=== PATIENT | male | born 1960 | race Caucasian/White ===

== ENCOUNTER 2018-11-29 13:00 | Emergency (ER) | payer OTHER ==
[~2018-11-29] VITALS: Ht 175.3 cm; Wt 93.9 kg
[~2018-11-29 13:00] MED LIST: AMLO5; CLOP75 PO; COMBIVENT RESPIM4 GM; CYCL10 PO; HYDACE10B; HYDCHL12.5; IRBHYD150 PO; LIVALO4 MG; MONT10T; NITR.4SL SL; Norco 5-325 Ta1 EACH PO; Percocet 5-3251 EACH PO; Prednisone20 MG PO; Protonix40 MG PO; Ranexa1000 MG PO; Ventolin Soln3 ML; Vibramycin100 MG PO
[2018-11-29 13:40] LABS: Calcium, Ionized (POC) 1.14 mmol/L (1.10-1.46); Creatinine (POC) 1.6 mg/dL (0.8-1.3); Hemoglobin (POC) 12.9 g/dL (13.5-17.5); Potassium (POC) 3.8 mmol/L (3.5-5.5)
== END 2018-11-29 16:00 | disposition home or self-care (01) ==
LOC: ER 13:00
PROVIDERS: Physician Assistant
DX: J36 Peritonsillar abscess (principal); Z88.6 Allergy status to analgesic agent; Z88.0 Allergy status to penicillin; Z88.2 Allergy status to sulfonamides; Z88.1 Allergy status to other antibiotic agents; Z79.899 Other long term (current) drug therapy; Z79.891 Long term (current) use of opiate analgesic; J44.9 Chronic obstructive pulmonary disease, unspecified; Z87.891 Personal history of nicotine dependence
CPT/HCPCS: 70491; 80047; 85014; 96361-59; 96365-59; 99283-25; J7030; Q9967

== ENCOUNTER → 2019-03-25 | Outpatient (CLI) | payer OTHER ==
[~2019-03-25] MED LIST changes: +ALBU2.5V5 INH; +C Complex1000 MG PO; +COMBIVENT RESPIM4 GM INH; +Crestor5 MG PO; +GLUCOSAMINE HC500 MG PO; +IRBESARTAN-HCT1 EACH PO; +KRILL OIL500 MG PO; +MITIGARE0.6 MG PO; +MONT10T PO; +Nitroglycerin0.4 MG SL; +QVAR REDIHALE10.6 G1 INH; +UTIBRON NEOHALER INH
[2019-03-25 11:00] LABS: Body Fluid Crystals NEG (NEGATIVE)
== END | disposition home or self-care (01) ==
LOC: LAB 10:40 → LAB SHORT 10:40
DX: M70.22 Olecranon bursitis, left elbow (principal); M25.50 Pain in unspecified joint
CPT/HCPCS: 87070; 87205; 89060

== ENCOUNTER 2019-05-10 09:44 | Day surgery (SDC) | payer OTHER ==
[~2019-05-10] VITALS: Ht 175.3 cm; Wt 92.8 kg
[~2019-05-10 09:44] MED LIST changes: -Crestor5 MG PO
[2019-05-10] MEDS ORDERED: Crestor5 MG PO (10:40)
== END 2019-05-10 13:00 | disposition home or self-care (01) ==
LOC: ORSCSDS 09:44
PROVIDERS: Orthopaedic Surgery
PROC: 0SBC4ZZ Excision of Right Knee Joint, Percutaneous Endoscopic Approach (ICD-10-PCS; principal; 2019-05-10 11:30)
DX: S83.241A Other tear of medial meniscus, current injury, right knee, initial encounter (principal); S83.281A Other tear of lateral meniscus, current injury, right knee, initial encounter; I10 Essential (primary) hypertension; I25.10 Atherosclerotic heart disease of native coronary artery without angina pectoris; J44.9 Chronic obstructive pulmonary disease, unspecified; Z79.899 Other long term (current) drug therapy
CPT/HCPCS: A9270-GY; J0171; J1100; J1885; J2250; J2405; J2704; J3010; J3370

== ENCOUNTER 2020-05-05 06:11 | Observation (INO) | payer OTHER ==
[~2020-05-05] VITALS: Ht 175.3 cm; Wt 98.0 kg
[~2020-05-05 06:11] MED LIST changes: -ALBU2.5V5 INH; +ALBU2.5V5 NEB; +COMBIVENT RESPIM4 G1 INH; -COMBIVENT RESPIM4 GM INH; +Crestor5 MG PO; +FLONASE ALLERG9.9 M2; +IRBESARTAN-HCT1 EAC3 PO; -IRBESARTAN-HCT1 EACH PO; +NITROGLYCERIN 0.1 MG/HR TD; -Nitroglycerin0.4 MG SL; +Nitrostat0.3 MG SL; +TRAM50 PO
--- NOTE | 2020-05-05 11:30 | NUR ---
ambulated to bathroom. Tolerated well.
--- NOTE | 2020-05-05 12:39 | NUR ---
REPORT GIVEN TO Sujata CHEN RN
--- NOTE | 2020-05-05 13:15 | NUR ---
TRANSFERRED TO PCU 15 VIA BED. DENIES CHEST PAIN. TR BAND INTACT 11 CC AIR. NO BLEEDING AT SITE.
--- NOTE | 2020-05-05 13:30 | NUR ---
PT TO ROOM FROM H/C. PT A/O. DENIES PAIN. H/R REG, NO MURMER NOTED. LUNGS CLEAR, RESP EASY, UNLABORED. TR BAND INTACT. 11 CC IN BAND PER REPORT FROM COMMUNICATIONS CONTROLLER. OBSERVED. NO BLEEDING NOTED. NO HEMATOMA. SITE CLEAN DRY. PT STATES NO NUMBNESS TINGLING IN FINGERS. O2 > 92% ON R.A. AT EXTREMETIES.
--- NOTE | 2020-05-05 15:47 | NUR ---
REVIEW OF TR BAND DURING DEFLATION. PT DENIES PAIN, NUMNESS TINGLING. CAP REFILL <2 SEC. FINGERS PINK. O2 SATS >92% NO BLEEDING, HEMATOMA, OR BRUISING NOTED.
--- NOTE | 2020-05-05 16:17 | NUR ---
PT C/O CHEST PAIN 4/10 MINLINE. BP VSS . ONE NITRO S/L ADMIN. PT STATES IS EASING UP.
[2020-05-05] MEDS ORDERED: WIXELA 250-501 EAC1 INH (17:01)
[2020-05-05] MEDS ORDERED: ANORO ELLIPTA1 EAC1 INH (17:04)
--- NOTE | 2020-05-05 18:04 | NUR ---
PT PLEASANT TODAY SINCE ADMIT. TR BAND FULLY DEFLATED AT 1645, REMOVED AT 1800. NO BLEEDING, NO HEMATOMA, NO BRUISING NOTED. ARMBAND IN PLACE. PT ATE DINNER WITHOUT ISSUES. BED IN LOW POSITION, CALL LITE IN REACH, CALLS APPROP
[2020-05-06 04:22] LABS: BASOPHILS ABSOLUTE AUTO 0.03 K/mm3 (0.00-0.23); BASOPHILS PERCENT AUTO 0 % (0-2); EOSINOPHILS PERCENT AUTO 4 % (0-6); Hematocrit 35.3 % (37.0-53.0); Hemoglobin 12.2 g/dL (13.5-17.5); IMMATURE GRAN ABSOLUTE AUTO 0.04 K/mm3 (0.00-0.10); IMMATURE GRAN PERCENT AUTO 1 % (0-1); LYMPHOCYTES ABSOLUTE AUTO 2.49 K/mm3 (0.84-5.20); LYMPHOCYTES PERCENT AUTO 36 % (21-46); MONOCYTES PERCENT AUTO 10 % (4-13); Mean Corpuscular HGB 32.8 pg (26.0-34.0); Mean Corpuscular HGB Conc 34.6 g/dL (31.5-36.5); Mean Corpuscular Volume 95 fL (80-100); Mean Platelet Volume 8.8 fL (9.1-12.4); NEUTROPHILS ABSOLUTE AUTO 3.28 K/mm3 (1.96-9.15); NEUTROPHILS PERCENT AUTO 48 % (41-73); Platelet Count 236 K/mm3 (150-400); RDW Standard Deviation 41.2 fL (35.1-46.3); Red Blood Cell Count 3.72 M/mm3 (4.30-5.90); White Blood Cell Count 6.84 K/mm3 (4.00-11.30)
[2020-05-06 04:45] LABS: Anion Gap 6 mmol/L (6-16); Blood Urea Nitrogen 14 mg/dL (8-24); CO2, Blood 26 mmol/L (21-32); Calcium, Blood 8.7 mg/dL (8.5-10.1); Chloride, Blood 107 mmol/L (98-108); Creatinine, Blood 1.17 mg/dL (0.60-1.20); Glomerular Filtration Rate >60 (60-); Glucose, Blood 102 mg/dL (70-99); Potassium, Blood 3.9 mmol/L (3.5-5.5); Sodium, Blood 139 mmol/L (136-145)
--- NOTE | 2020-05-06 05:29 | NUR ---
PT RESTED COMFORTABLY THROUGHOUT NIGHT AO TELE NSR VOIDING INDEPENDENTLY NO BM R RADIAL SITE CDI NO C/O PAIN CALL LIGHT WITHIN REACH. BED IN LOWEST IN POSITION. WILL CONTINUE TO MONITOR.
--- NOTE | 2020-05-06 07:34 | NUR ---
ASSUMED CARE: PT RESTING QUIETLY AT THIS TIME. NSR WITH PACS ON TELE. NO ACUTE NEEDS OR CONCERNS.
[2020-05-06] MEDS ORDERED: TICA90TA PO (12:38)
[2020-05-06] MEDS ORDERED: HYDCHL25 PO (12:38)
--- NOTE | 2020-05-06 13:45 | NUR ---
PT DISCHARGED. IV REMOVED WNL. RADIAL SITE WITHOUT SIGN OF HEMATOMA OR BLEEDING. EDUCATED TO HOLD PRESSURE IF BLEEDING OR SWELLING IS NOTED. EDUCATED TO FOLLOW UP WITH CARDIOLOGY IN 1 WEEK. PT STATES HE ALREADY HAS APPOINTMENT. EDUCATED ABOUT PRECAUTIONS WITH BRILINTA AND INFORMED TO NOT TAKE EXTRA HYDROCHLOROTHIAZIDE PER DR SALDAÑA. ESCORTED OUT VIA WHEEL CHAIR BY HOSPITAL STAFF. NO FURTHER NEEDS OR CONCERNS AT THIS TIME.
== END 2020-05-06 13:40 | disposition home or self-care (01) ==
LOC: MHTC 06:11 → PCU 12:29 → MHTC 13:31 → PCU 05-06 13:40
PROVIDERS: Internal Medicine Interventional Cardiology; ADMIT Internal Medicine Interventional Cardiology
DX: I25.110 Atherosclerotic heart disease of native coronary artery with unstable angina pectoris (principal); I10 Essential (primary) hypertension; E78.5 Hyperlipidemia, unspecified; J44.9 Chronic obstructive pulmonary disease, unspecified; Z88.0 Allergy status to penicillin; Z88.2 Allergy status to sulfonamides; Z88.6 Allergy status to analgesic agent; Z88.8 Allergy status to other drugs, medicaments and biological substances; Z79.01 Long term (current) use of anticoagulants; Z79.899 Other long term (current) drug therapy; Z87.891 Personal history of nicotine dependence
CPT/HCPCS: 76937; 80048; 85025; 85347; 93454; 94640; 94760; 96372; 99152; 99153; A9270-GY; C1725; C1769; C1874; C1887; C1894; C9600; C9601; G0378; J1644; J2250; J3010; J7030; J7050; Q9967

== ENCOUNTER 2020-09-29 10:43 | Observation (INO) | payer OTHER ==
[~2020-09-29] VITALS: Ht 175.3 cm; Wt 93.6 kg
[~2020-09-29 10:43] MED LIST changes: +ANORO ELLIPTA1 EAC1 INH; +Aspir 8181 MG PO; +GENICIN500 M1 PO; -GLUCOSAMINE HC500 MG PO; +HYDCHL25 PO; +HYOSCYAMINE0.375 M3 PO; +IRBE75 PO; +NITROGLYCERIN PATCH TD; +PEPCID40 MG PO; +RANEXA1000 M1 PO; +SPIRIVA RESPIMAT4 G2 INH; +TICA90TA PO; +WIXELA 250-501 EAC1 INH
[2020-09-29 11:30] LABS: BASOPHILS ABSOLUTE AUTO 0.03 K/mm3 (0.00-0.23); BASOPHILS PERCENT AUTO 1 % (0-2); EOSINOPHILS ABSOLUTE AUTO 0.15 K/mm3 (0.00-0.68); EOSINOPHILS PERCENT AUTO 3 % (0-6); Hematocrit 40.1 % (37.0-53.0); Hemoglobin 13.7 g/dL (13.5-17.5); IMMATURE GRAN ABSOLUTE AUTO 0.03 K/mm3 (0.00-0.10); IMMATURE GRAN PERCENT AUTO 1 % (0-1); LYMPHOCYTES ABSOLUTE AUTO 1.44 K/mm3 (0.84-5.20); LYMPHOCYTES PERCENT AUTO 27 % (21-46); MONOCYTES ABSOLUTE AUTO 0.46 K/mm3 (0.16-1.47); MONOCYTES PERCENT AUTO 9 % (4-13); Mean Corpuscular HGB 33.3 pg (26.0-34.0); Mean Corpuscular HGB Conc 34.2 g/dL (31.5-36.5); Mean Corpuscular Volume 97 fL (80-100); Mean Platelet Volume 9.2 fL (9.1-12.4); NEUTROPHILS ABSOLUTE AUTO 3.23 K/mm3 (1.96-9.15); NEUTROPHILS PERCENT AUTO 60 % (41-73); Platelet Count 217 K/mm3 (150-400); RDW Coefficient Variation 12.2 % (11.7-14.2); RDW Standard Deviation 44.2 fL (35.1-46.3); Red Blood Cell Count 4.12 M/mm3 (4.30-5.90); White Blood Cell Count 5.34 K/mm3 (4.00-11.30)
[2020-09-29 11:46] LABS: Alanine Aminotransfer (ALT/SGP 31 U/L (12-78); Albumin, Blood 3.7 g/dL (3.4-5.0); Albumin/Globulin Ratio 1.2 (0.8-1.8); Alk Phos 80 U/L (50-136); Anion Gap 6 mmol/L (6-16); Aspartate Aminotrans (AST/SGOT 15 U/L (12-37); Bilirubin, Total 0.9 mg/dL (0.1-1.0); Blood Urea Nitrogen 17 mg/dL (8-24); CO2, Blood 23 mmol/L (21-32); Calcium, Blood 8.9 mg/dL (8.5-10.1); Chloride, Blood 110 mmol/L (98-108); Creatinine, Blood 0.94 mg/dL (0.60-1.20); Globulin, Blood 3.2 g/dL (2.2-4.0); Glomerular Filtration Rate >60 (60-); Glucose, Blood 118 mg/dL (70-99); Potassium, Blood 3.9 mmol/L (3.5-5.5); Sodium, Blood 139 mmol/L (136-145); Total Protein, Blood 6.9 g/dL (6.4-8.2); Troponin I <0.015 ng/mL (0.000-0.040)
[2020-09-29] MEDS ORDERED: PANTOPRAZOLE SO40 M2 PO (13:36)
--- NOTE | 2020-09-29 19:12 | NUR ---
SHIFT SUMMARY CHASIDY ARRIVED FROM ER AROUND 1420 THIS AFTERNOON. PRESENT MOST OF AFTERNOON. PT AT 4/10 PAIN AND RECEIVED IV FENTANYL AND A OT DOSE OF PO XANAX WHICH HELPED. INDEP IN ROOM. MIVF RUNNING. DR DISLA AT BEDSIDE AT SHIFT CHANGE. TELE SHOWING SINUS PAUL. TOOK MEDS PRESCRIBED. CALL LIGHT IN REACH, REPORT GIVEN TO NIGHT NURSE
[2020-09-30 01:03] LABS: BASOPHILS ABSOLUTE AUTO 0.03 K/mm3 (0.00-0.23); BASOPHILS PERCENT AUTO 1 % (0-2); EOSINOPHILS ABSOLUTE AUTO 0.18 K/mm3 (0.00-0.68); EOSINOPHILS PERCENT AUTO 3 % (0-6); Hematocrit 36.2 % (37.0-53.0); Hemoglobin 12.5 g/dL (13.5-17.5); IMMATURE GRAN ABSOLUTE AUTO 0.02 K/mm3 (0.00-0.10); IMMATURE GRAN PERCENT AUTO 0 % (0-1); LYMPHOCYTES ABSOLUTE AUTO 2.21 K/mm3 (0.84-5.20); LYMPHOCYTES PERCENT AUTO 40 % (21-46); MONOCYTES ABSOLUTE AUTO 0.57 K/mm3 (0.16-1.47); MONOCYTES PERCENT AUTO 10 % (4-13); Mean Corpuscular HGB 33.6 pg (26.0-34.0); Mean Corpuscular HGB Conc 34.5 g/dL (31.5-36.5); Mean Corpuscular Volume 97 fL (80-100); Mean Platelet Volume 9.2 fL (9.1-12.4); NEUTROPHILS ABSOLUTE AUTO 2.59 K/mm3 (1.96-9.15); NEUTROPHILS PERCENT AUTO 46 % (41-73); Platelet Count 207 K/mm3 (150-400); RDW Coefficient Variation 12.4 % (11.7-14.2); RDW Standard Deviation 44.5 fL (35.1-46.3); Red Blood Cell Count 3.72 M/mm3 (4.30-5.90)
[2020-09-30 01:23] LABS: Anion Gap 8 mmol/L (6-16); Blood Urea Nitrogen 16 mg/dL (8-24); Bun/Creatinine Ratio 15.8 (12.0-20.0); CO2, Blood 24 mmol/L (21-32); Calcium, Blood 8.2 mg/dL (8.5-10.1); Chloride, Blood 109 mmol/L (98-108); Creatinine, Blood 1.01 mg/dL (0.60-1.20); Glomerular Filtration Rate >60 (60-); Glucose, Blood 122 mg/dL (70-99); Potassium, Blood 3.5 mmol/L (3.5-5.5); Sodium, Blood 141 mmol/L (136-145); Troponin I <0.015 ng/mL (0.000-0.040)
--- NOTE | 2020-09-30 04:20 | NUR ---
SHIFT SUMMARY ASSUMED CARE OF PT AT 1900. PT IS A/OX4. HEART SOUNDS REGULAR, TELE SHOWS SINUS PAUL @ 50. LUNG SOUNDS HAVE CRACKLES AT THE BASES, PT STATES HE FORGOT TO SET UP HIS CPAP BUT IF HE STAYED ANOTHER NIGHT HE WOULD SET IT UP. PT WAS INDEPENDENT IN ROOM. PT STATES HE ONLY HAS CP WITH WALKING BUT IT IS MINIMAL. NO ACUTE EVENTS DURING THE NIGHT. PT SLEPT T/O THE NIGHT. CALL LIGHT IN REACH, BED IN LOWEST POSTION.
[2020-09-30 07:31] LABS: CHOL/HDL RATIO 3.5; Cholesterol 150 mg/dL (50-200); HDL Cholesterol 43 mg/dL (>39); LDL/HDL RATIO 1.6; Low Density Lipoprotein Chol 70 mg/dL (0-110); Triglycerides 183 mg/dL (30-160); Very Low Density Lipoprot Chol 36 mg/dL (6-32)
--- NOTE | 2020-09-30 17:30 | NUR ---
SHIFT SUMMARY PT HAD A BOUT OF EPIGASTRIC PAIN AFTER EATING LUNCH TODAY. MEDICATED X1 FOR PAIN PER EMAR THIS SHIFT. DR. WILLAMS IN TO SEE PT WHEN PT HAD PAIN. ULTRASOUND TO BE DONE TOMORROW AM AND BARIUM SWALLOW SOMETIME TOMORROW. NO ACUTE CHANGES AT THIS TIME. CALL LIGHT IN REACH. WILL CONTINUE TO MONITOR AND REPORT TO ONCOMING RN.
--- NOTE | 2020-10-01 04:38 | NUR ---
SHIFT SUMMARY ASSUMED CARE OF PT AT 1900. PT IS A/OX4. HEART SOUNDS REGULAR, TELE SHOWS SINUS PAUL @ 58. LUNG SOUNDS HAVE FINE CRACKLES AT THE BASES. PT C/O PAIN IN HIS MIDDLE STERNUM AND UNDER HIS LOWER R BREAST, MEDICATED ONCE WITH FENTYAL WITH GOOD RELIEF. PT HAS BEEN NPO SINCE MIDNIGHT. PT INDEPENDNT IN ROOM. NO ACUTE EVENTS, PT SLEPT MOST OF THE NIGHT. CALL LIGHT IN REACH, BED IN LOWEST POSTION.
[2020-10-01] MEDS ORDERED: Amitriptyline H25 MG PO (12:04)
[2020-10-01] MEDS ORDERED: NITR.4SL SL (12:05)
[2020-10-01] MEDS ORDERED: VALIUM2 M1 PO (12:05)
--- NOTE | 2020-10-01 13:03 | NUR ---
DISCHARGE PT DISCHARGED TO HOME. THIS RN EXPLAINED DISCHARGE INSTRUCTIONS AND MEDICATIONS TO PT AND HE REPORTS HE UNDERSTANDS. IV REMOVED WITHOUT DIFFICULTY. ORDERS FOR BARIUM SWALLOW WERE FAXED TO MOST OFFICE SINCE NOT OPEN TODAY AND UNABLE TO SCHEDULE APPT WITH IMAGING. THIS RN ENCOURAGED PT TO CALL IN AM TO MAKE SURE APPT IS SET FOR BARIUM SWALLOW. MEDICATIONS FAXED TO REQUESTED PHARMACY. PT TRANSFERRED TO PRIVATE VEHICLE VIA WHEELCHAIR. PT'S BELONGINGS WITH PT.
== END 2020-10-01 12:48 | disposition home or self-care (01) ==
LOC: ER 10:43 → MEDS 10:44
PROVIDERS: Internal Medicine Cardiovascular Disease; Physician Assistant; ADMIT Internal Medicine
DX: R07.89 Other chest pain (principal); E66.9 Obesity, unspecified; G47.33 Obstructive sleep apnea (adult) (pediatric); F43.9 Reaction to severe stress, unspecified; F41.9 Anxiety disorder, unspecified; K22.4 Dyskinesia of esophagus; E78.5 Hyperlipidemia, unspecified; M10.9 Gout, unspecified; F15.11 Other stimulant abuse, in remission; R00.1 Bradycardia, unspecified; J44.9 Chronic obstructive pulmonary disease, unspecified; I10 Essential (primary) hypertension; I25.10 Atherosclerotic heart disease of native coronary artery without angina pectoris; Z68.30 Body mass index [BMI] 30.0-30.9, adult; Z91.19 Patient's noncompliance with other medical treatment and regimen; Z87.891 Personal history of nicotine dependence; Z29.8 Encounter for other specified prophylactic measures; Z79.899 Other long term (current) drug therapy; Z79.82 Long term (current) use of aspirin; Z79.51 Long term (current) use of inhaled steroids; Z95.5 Presence of coronary angioplasty implant and graft; Z88.6 Allergy status to analgesic agent; Z88.1 Allergy status to other antibiotic agents; Z88.0 Allergy status to penicillin; Z88.2 Allergy status to sulfonamides
CPT/HCPCS: 36415; 71046; 76705; 80048; 80053; 80061; 83605; 83880; 84484; 85025; 85379; 93005; 93010; 93306; 94640; 94760; 96372; 96374; 96376; 99285-25; A9270; G0378; J1650; J3010; J7030

== ENCOUNTER 2022-06-17 16:41 | Emergency (ER) | payer OTHER ==
[~2022-06-17] VITALS: Ht 175.3 cm; Wt 97.1 kg
[~2022-06-17 16:41] MED LIST changes: +Amitriptyline H25 MG PO; +Isosorbide Mono30 MG PO; +PANTOPRAZOLE SO40 M2 PO; +VALIUM2 M1 PO
[2022-06-17 17:46] LABS: BASOPHILS ABSOLUTE AUTO 0.02 K/mm3 (0.00-0.23); BASOPHILS PERCENT AUTO 0 % (0-2); EOSINOPHILS ABSOLUTE AUTO 0.06 K/mm3 (0.00-0.68); EOSINOPHILS PERCENT AUTO 1 % (0-6); Hemoglobin 12.8 g/dL (13.5-17.5); IMMATURE GRAN ABSOLUTE AUTO 0.02 K/mm3 (0.00-0.10); IMMATURE GRAN PERCENT AUTO 0 % (0-1); LYMPHOCYTES ABSOLUTE AUTO 2.31 K/mm3 (0.84-5.20); LYMPHOCYTES PERCENT AUTO 37 % (21-46); MONOCYTES ABSOLUTE AUTO 0.63 K/mm3 (0.16-1.47); MONOCYTES PERCENT AUTO 10 % (4-13); Mean Corpuscular HGB 34.3 pg (26.0-34.0); Mean Corpuscular HGB Conc 35.6 g/dL (31.5-36.5); Mean Corpuscular Volume 97 fL (80-100); Mean Platelet Volume 9.1 fL (9.1-12.4); NEUTROPHILS ABSOLUTE AUTO 3.14 K/mm3 (1.96-9.15); NEUTROPHILS PERCENT AUTO 51 % (41-73); Platelet Count 227 K/mm3 (150-400); RDW Coefficient Variation 12.3 % (11.7-14.2); RDW Standard Deviation 43.3 fL (35.1-46.3); Red Blood Cell Count 3.73 M/mm3 (4.30-5.90); White Blood Cell Count 6.18 K/mm3 (4.00-11.30)
[2022-06-17 18:05] LABS: Albumin, Blood 3.9 g/dL (3.4-5.0); Albumin/Globulin Ratio 1.4 (0.8-1.8); Bilirubin, Total 0.3 mg/dL (0.1-1.0); Bun/Creatinine Ratio 13.7 (12.0-20.0); Calcium, Blood 9.1 mg/dL (8.5-10.1); Creatinine, Blood 1.02 mg/dL (0.60-1.20); Globulin, Blood 2.8 g/dL (2.2-4.0); Potassium, Blood 3.9 mmol/L (3.5-5.5); Total Protein, Blood 6.7 g/dL (6.4-8.2)
== END 2022-06-17 21:22 | disposition home or self-care (01) ==
LOC: ER 16:41
PROVIDERS: Physician Assistant
DX: R00.2 Palpitations (principal); R07.89 Other chest pain; I25.10 Atherosclerotic heart disease of native coronary artery without angina pectoris; J44.9 Chronic obstructive pulmonary disease, unspecified; I10 Essential (primary) hypertension; Z95.5 Presence of coronary angioplasty implant and graft; Z88.0 Allergy status to penicillin; Z88.2 Allergy status to sulfonamides; Z88.6 Allergy status to analgesic agent; Z79.899 Other long term (current) drug therapy; Z79.82 Long term (current) use of aspirin; Z79.02 Long term (current) use of antithrombotics/antiplatelets; Z87.891 Personal history of nicotine dependence
CPT/HCPCS: 36415; 71045; 80053; 83880; 84484; 85025; 93005; 93010; 99285-25

== ENCOUNTER 2024-02-12 12:01 | Emergency (ER) | payer OTHER ==
[~2024-02-12] VITALS: Ht 172.7 cm; Wt 98.0 kg
[2024-02-12 12:47] LABS: BASOPHILS ABSOLUTE AUTO 0.03 K/mm3 (0.00-0.23); BASOPHILS PERCENT AUTO 0 % (0-2); EOSINOPHILS ABSOLUTE AUTO 0.22 K/mm3 (0.00-0.68); EOSINOPHILS PERCENT AUTO 3 % (0-6); Hematocrit 38.8 % (37.0-53.0); Hemoglobin 13.5 g/dL (13.5-17.5); IMMATURE GRAN ABSOLUTE AUTO 0.05 K/mm3 (0.00-0.10); IMMATURE GRAN PERCENT AUTO 1 % (0-1); LYMPHOCYTES ABSOLUTE AUTO 1.81 K/mm3 (0.84-5.20); LYMPHOCYTES PERCENT AUTO 26 % (21-46); MONOCYTES ABSOLUTE AUTO 0.55 K/mm3 (0.16-1.47); MONOCYTES PERCENT AUTO 8 % (4-13); Mean Corpuscular HGB 34.2 pg (26.0-34.0); Mean Corpuscular HGB Conc 34.8 g/dL (31.5-36.5); Mean Corpuscular Volume 98 fL (80-100); Mean Platelet Volume 9.5 fL (9.1-12.4); NEUTROPHILS PERCENT AUTO 62 % (41-73); Platelet Count 222 K/mm3 (150-400); RDW Coefficient Variation 12.3 % (11.7-14.2); RDW Standard Deviation 44.2 fL (35.1-46.3); Red Blood Cell Count 3.95 M/mm3 (4.30-5.90); White Blood Cell Count 7.06 K/mm3 (4.00-11.30)
[2024-02-12 13:01] LABS: Albumin, Blood 3.7 g/dL (3.4-5.0); Bilirubin, Total 0.6 mg/dL (0.1-1.0); Bun/Creatinine Ratio 19.2 (12.0-20.0); Calcium, Blood 9.3 mg/dL (8.5-10.1); Creatinine, Blood 0.94 mg/dL (0.60-1.20); Globulin, Blood 3.6 g/dL (2.2-4.0); Potassium, Blood 3.9 mmol/L (3.5-5.5); Total Protein, Blood 7.3 g/dL (6.4-8.2)
[2024-02-12 16:45] VITALS: BP 122/81
== END 2024-02-12 17:13 | disposition home or self-care (01) ==
LOC: ER 12:01
PROVIDERS: Student in an Organized Health Care Education/Training Program
DX: R55 Syncope and collapse (principal); I10 Essential (primary) hypertension; J44.9 Chronic obstructive pulmonary disease, unspecified; Z79.82 Long term (current) use of aspirin; Z79.02 Long term (current) use of antithrombotics/antiplatelets; Z79.51 Long term (current) use of inhaled steroids; Z79.899 Other long term (current) drug therapy; Z88.0 Allergy status to penicillin; Z88.2 Allergy status to sulfonamides; Z88.6 Allergy status to analgesic agent; Z88.1 Allergy status to other antibiotic agents
CPT/HCPCS: 71046; 80053; 83735; 83880; 84484; 85025; 93005; 93010; 93242; 99284-25

== ENCOUNTER → 2024-08-16 | Outpatient (CLI) | payer OTHER ==
[2024-08-16 20:03] LABS: Prostate Specific Antigen 0.521 ng/mL (0.000-4.000)
== END ==
LOC: LAB SHORT 17:40 → LAB 17:40
PROVIDERS: Hospitalist
DX: Z12.5 Encounter for screening for malignant neoplasm of prostate (principal)
CPT/HCPCS: G0103

== ENCOUNTER → 2024-08-17 | Outpatient (CLI) | payer OTHER ==
[2024-08-17 14:11] LABS: Appearance, Urine Clear (Clear); Bilirubin, Urine Neg (Neg); Blood, Urine Neg (Neg); Color, Urine Yellow (P-Yellow); Glucose Qualitative, Urine Neg (Neg); Ketones, Urine Neg (Neg); Leukocyte Esterase, Urine Neg (Neg); Nitrite, Urine Neg (Neg); Protein, Urine Neg (Neg); Source, Urine Voided; Specific Gravity, Urine 1.025 (1.003-1.022); Urobilinogen, Urine NORM (Normal)
== END | disposition home or self-care (01) ==
LOC: LAB SHORT 13:18 → LAB 13:18
PROVIDERS: Hospitalist
DX: R39.15 Urgency of urination (principal)
CPT/HCPCS: 81003

== ENCOUNTER → 2025-02-02 | Outpatient (CLI) | payer OTHER ==
[2025-02-02 21:14] LABS: Free Thyroxine 0.93 ng/dL (0.70-1.60)
[2025-02-02 21:16] LABS: Thyroid Stimulating Hormone 3.04 uIU/mL (0.360-4.800)
== END ==
LOC: LAB 17:14 → LAB SHORT 17:14
PROVIDERS: Hospitalist
DX: E03.9 Hypothyroidism, unspecified (principal)
CPT/HCPCS: 84439; 84443